=== PATIENT | male | born 1990 | race Two or more races ===

== ENCOUNTER 2024-11-02 13:24 | Outpatient (CLI) | payer OTHER | END 2024-11-02 13:35 | disposition home or self-care (01) | LOC: TOM 13:24 | PROVIDERS: ATTEND Orthopaedic Surgery | DX: S82.872A Displaced pilon fracture of left tibia, initial encounter for closed fracture (principal); X58.XXXA Exposure to other specified factors, initial encounter; Y93.9 Activity, unspecified; Y92.9 Unspecified place or not applicable; Y99.9 Unspecified external cause status ==

== ENCOUNTER → 2024-11-17 14:40 | Outpatient (CLI) | payer OTHER | END | disposition home or self-care (01) | LOC: LAB 14:40 | PROVIDERS: ATTEND Orthopaedic Surgery | DX: E55.9 Vitamin D deficiency, unspecified (principal); M85.9 Disorder of bone density and structure, unspecified; E56.1 Deficiency of vitamin K ==

== ENCOUNTER 2025-02-08 08:23 | Outpatient (CLI) | payer OTHER | END 2025-02-08 08:31 | disposition home or self-care (01) | LOC: RAD 08:23 | PROVIDERS: ATTEND Orthopaedic Surgery | DX: S82.875A Nondisplaced pilon fracture of left tibia, initial encounter for closed fracture (principal) ==